=== PATIENT | male | born 1980 | race Caucasian/White ===

== ENCOUNTER 2017-08-07 00:22 | Inpatient (IN) | payer OTHER ==
[~2017-08-07] VITALS: Ht 182.9 cm; Wt 95.3 kg
[2017-08-07 01:00] VITALS: BP 139/82
[2017-08-07] MEDS ORDERED: DIAZEPAM 10 MG TABLET PO PRN ×2 (01:00)
[2017-08-07] MEDS ORDERED: IBUPROFEN 400 MG TABLET PO PRN (01:00)
[2017-08-07] MEDS ORDERED: DIAZEPAM 5 MG TABLET PO PRN (01:00)
[2017-08-07] MEDS ORDERED: ONDANSETRON ODT 4 MG TAB.RAPDIS SL PRN (01:00)
[2017-08-07] MEDS ORDERED: ONDANSETRON 4 MG/2 ML VIAL IM PRN (01:00)
[2017-08-07] MEDS ORDERED: LORAZEPAM 2 MG/1 ML VIAL IM PRN (01:00)
[2017-08-07] MEDS ORDERED: MAG HYDROX/AL HYDROX/SIMETH 30 ML LIQUID UDC PO PRN (01:00)
[2017-08-07] MEDS ORDERED: ACETAMINOPHEN 325 MG TABLET PO PRN (01:00)
[2017-08-07] MEDS ORDERED: MIRALAX 17 GM POWD.PACK PO PRN (01:00)
[2017-08-07] MEDS ORDERED: MAGNESIUM HYDROXIDE 30 ML LIQUID UDC PO PRN (01:00)
[2017-08-07] MEDS ORDERED: LOPERAMIDE HCL 2 MG CAPSULE PO PRN ×2 (01:00)
[2017-08-07] MEDS ORDERED: DICYCLOMINE HCL 20 MG TABLET PO PRN (01:00)
--- NOTE | 2017-08-07 01:00 | NUR ---
Pre-admission assessment Assessment done at intake office. Patient is alert & oriented x4. Pt is ambulatory with a steady gait. Speech is clear and audible. Pt does not look intoxicated. Pt appears slightly anxious and is cooperative during interviews. Vitals noted B/P 139/82, MA 88, RR 16, Temp 97.9, O2Sat 96%. Pt appears stable. Vitals WNL. No seizure history noted. Pt denies any food and drug allergies. Explained to patient unit policy & regarding destruction of any controlled substances or prescriptions brought to facility and handling of all medications. Pt verbalized understanding.
--- NOTE | 2017-08-07 02:00 | NUR ---
ADMISSION NOTE: Patient is a 37 y.o male admitted at [facility] Unit at approximately 0119 am of 08/07/17 for medically supervised withdrawal from Benzodiazepines. Body search done and skin check performed in Room 303, no contraband found. Skin noted to be intact. Pt is 60" tall and weighs 210 lbs in a standing scale. Pt is cooperative during assessment. Patient is oriented to floor unit and room. Patient follows a regular diet at home with no known food and drug allergies. Pt wishes to be full Code. Patient is alert & oriented x4, ambulatory with a steady gait. Speech is clear and audible. Patient appears mildly anxious and agitated but cooperative during interview. Patient does not look intoxicated. No shortness of breath noted. Respiration even & unlabored. Abdomen soft & non-distended. Bowel sounds active in all four quadrants. No nausea/vomiting noted. Patient denies any pain & discomfort. No hand tremors noted. CIWA 5 noted. Patient noted with past medical history of Anxiety, Neuropathic pain & Hypertension. Patient denies any seizure history. No suicide attempts in the past. Pt currently denies SI/HI. Pt was able to provide urine sample for drug screen upon admission and is voiding clear yellow urine with no problems. Substance use: 1. Xanax- Pt has been taking prescription Xanax for anxiety for 10 years. Patient takes 4mg of Xanax daily in the past 4 years. Pt last took 1mg of Xanax in the morning of 08/06/17. 2. Methamphetamines- Pt has been using Meth intravenously for 2 years. Pt uses 1-2gm daily for the past 2 years. Pt last took 1gm of Meth on 08/06/17. 3. [place]- Pt is taking prescribed [place] 10/325mg for his neuropathy. Pt denies dependence on Opiates and has been taking it occasionally. Pt reported that his last dose was on 08/03/17. Treatment History: 1. [facility] in [place] for 30 days (November 2012) 2. [facility] in [place] for 2 months (2013) Home Medication: 1.Pt reports taking anti hypertensive medication but does not remember the name or how much he takes. Pt did not bring medication with him. 2.Ibuprofen 200mg softgels for pain. Patient denies being hospitalized in the last 30 days. Patient reports his longest period of sobriety was for 8 months from November 2012 to July 2013. Patient reports symptoms when he does not use as anxiety, agitation, headaches & stuttering. Patient uses a vape and smokes cigarettes occasionally. Patient refused flu & pneumonia vaccines, educated patient risk & benefits but still refused. Patient has a PCP named Dr. Rios. Urine drug screen came back positive for Opiates, Benzos and Ampethamines. Fall & Seizure precautions are in place. All needs attended & met. Safety precautions are in place. Bed locked in lowest position. Both side rails padded & up. Call light within pt's reach. Informed Dr. Ramírez of pts admission. Will continue to monitor patient.
[2017-08-07 02:32] LABS: ETHANOL < 3 MG/DL (0-0)
[2017-08-07 02:35] LABS: ALANINE AMINOTRANSFERASE 28 U/L (16-63); ALKALINE PHOSPHATASE 63 U/L (50-136); AMYLASE 49 U/L (25-115); ASPARTATE AMINOTRANSFERASE 13 U/L (15-37); BILIRUBIN,TOTAL 0.2 mg/dL (0.2-1.0); CARBON DIOXIDE 29 mmol/L (21-32); CHLORIDE 105 mmol/L (98-107); CREATININE 1.1 mg/dL (0.6-1.3); GLUCOSE 86 mg/dL (74-106); LIPASE 154 U/L (73-393); MAGNESIUM 2.1 mg/dL (1.8-2.4); POTASSIUM 3.7 mmol/L (3.5-5.1); TOTAL PROTEIN, SERUM 7.6 g/dL (6.4-8.2); UREA NITROGEN, BLOOD 18 mg/dL (7-18)
[2017-08-07 02:36] LABS: BASOPHILS % (AUTO) 0.5 % (0.0-2.0); EOSINOPHILS # (AUTO) 0.3 K/uL (0.0-0.7); EOSINOPHILS % (AUTO) 5.6 % (0.0-7.0); HEMATOCRIT 44.4 % (36.7-47.1); LYMPHOCYTES # (AUTO) 2.1 K/uL (20.0-40.0); LYMPHOCYTES % (AUTO) 34.4 % (20.5-51.5); MEAN CORPUSCULAR HEMOGLOBIN 28.2 uug (23.8-33.4); MEAN CORPUSCULAR HGB CONC 34 g/dL (32.5-36.3); MEAN CORPUSCULAR VOLUME 83.7 fL (73.0-96.2); MONOCYTES # (AUTO) 0.7 K/uL (2.0-10.0); MONOCYTES % (AUTO) 11.4 % (0.0-11.0); NEUTROPHILS # (AUTO) 2.9 K/uL (1.8-8.9); NEUTROPHILS % (AUTO) 48.1 % (38.5-71.5); PLATELET COUNT (AUTO) 269 K/uL (152-348)
[2017-08-07 02:41] LABS: *AMPHETAMINE, URINE POSITIVE (NEGATIVE); *BARBITURATE, URINE NEGATIVE (NEGATIVE); *CANNABINOID, URINE NEGATIVE (NEGATIVE); *COCCAINE, URINE NEGATIVE (NEGATIVE); *OPIATE, URINE POSITIVE (NEGATIVE); *PHENCYCLIDINE SCREEN,URINE NEGATIVE (NEGATIVE)
[2017-08-07 02:44] LABS: THYROID STIMULATING HORMONE 3.707 mIU/mL (0.358-3.740)
--- NOTE | 2017-08-07 02:54 | NUR ---
PRN Valium Patient appears mildly anxious and agitated with a CIWA 5 noted. Vitals WNL. PRN Valium 5mg administered as ordered. Will monitor for effectiveness of medication.
[2017-08-07] MEDS ORDERED: DIAZEPAM 5 MG TABLET ONE (03:07)
[2017-08-07] MEDS ORDERED: IBUP-1953 PO (03:25)
--- NOTE | 2017-08-07 03:54 | NUR ---
PRn Reassessment Patient appears less anxious and less agitated. Pt verbalized that medication helped him relieved his anxiety. Patient in bed and comfortable. Will continue to monitor patient.
--- NOTE | 2017-08-07 07:10 | NUR ---
Start of Shift Note: Patient is a 37 y.o male admitted today 08/07/17 at 0119am for Benzo dependence. Patient has PMHx of Anxiety, hypertension and Neuropathy. No seizure history noted. Patient is on a regular diet with no known food and drug allergies. Full Code status. Skin noted to be intact. Patient remained stable and vitals WNL. Patient has no taper yet. CIWA 4 noted. Patient received PRN Valium for anxiety and agitation and was effective. Closely monitored symptoms of withdrawal. Vitals monitored and noted within normal limits. Patient shows no s/s of distress. Patient slept for a total of 2hour. Fluid intake 500 ml. Encourage pt to increase fluid intake. Voided 2x with no bowel movement. All needs attended & met. Safety measures in place. Will continue to monitor patient. Addendum: 08/07/17 at 0712 by ALISON HITCHCOCK RN ERROR: Duplicate
[2017-08-07 08:00] VITALS: BP 122/68
--- NOTE | 2017-08-07 08:00 | NUR ---
START OF SHIFT NOTE Received report from night nurse, 37 year old male admitted for Benzo dependence. Patient has PMH of Anxiety, hypertension and Neuropathy. Per endorsement pt received PRN Valium effective per night nurse, last CIWA score was 4, slept for 2 hours. Patient received awake, alert and oriented x4. Patient was educated regarding plan of care for the day and medication regimen. Safety measures in place. Call light with in reach. Will continue to monitor.
[2017-08-07] MEDS ORDERED: MAGNESIUM CHLORIDE 64 MG TABLET.SA PO SCH (09:00)
[2017-08-07] MEDS ORDERED: MULTIVITAMINS,THERAPEUTIC TABLET PO SCH (09:00)
[2017-08-07] MEDS ORDERED: TUBERCULIN,PURIF.PROT.DERIV. 5 TU/0.1 ML TEST ID ONE (09:00)
[2017-08-07] MEDS ORDERED: FOLIC ACID 1 MG TABLET PO SCH (09:00)
[2017-08-07] MEDS: DIAZEPAM 10 MG TABLET PO SCH ×4 (09:03→21:00)
[2017-08-07] MEDS ORDERED: BACLOFEN 20 MG TABLET PO PRN (11:30)
[2017-08-07 12:00] VITALS: BP 125/72
[2017-08-07] MEDS ORDERED: GABAPENTIN 300 MG CAPSULE PO SCH (13:00)
[2017-08-07 16:00] VITALS: BP 135/77
--- NOTE | 2017-08-07 19:06 | NUR ---
END OF SHIFT NOTE Patient started on Ativan taper tolerated well. During shift patient did not receive any PRN medication. Vital signs WNL. Patient did not attend any group or activity, encourage pt to attend groups to learn oping skills with good verbal understanding. Encourage Po fluids as tolerated. Pt medication compliant and tolerated well. Last CIWA score was 6. All safety measures in place, call light within reach. Patient endorsed to night nurse in stable condition.
--- NOTE | 2017-08-07 19:45 | NUR ---
START OF SHIFT Received report from day shift nurse. Pt is lying in bed resting and is easily arousable. He is a 37 yo male [facility]ZD dependence. He is A&O and ambulatory. NKA, full code status, and on a regular diet. He has a PMH of HTN, neuropathy, and anxiety. On admission he reported using xanax 4mg per day, norco 10/325mg x1, and meth 1-2 grams per day. 5 day Valium taper started today. He reports anxiety, sweating and fatigue. Fall and seizure precautions in place. Bed is down with call light in reach.
[2017-08-07 20:00] VITALS: BP 131/84
[2017-08-07] MEDS: GABAPENTIN 300 MG CAPSULE PO SCH (21:00)
[2017-08-08] VITALS (7 sets, daily range): BP systolic 111–155; BP diastolic 66–102
[2017-08-08] MEDS: CLONIDINE HCL 0.1 MG TABLET PO PRN ×2 (00:51→08:35)
--- NOTE | 2017-08-08 00:52 | NUR ---
PRN Clonidine Pt's B/P is 152/96 and HR 87 while lying in bed resting. He is diaphoretic. PRN Clonidine administered.
--- NOTE | 2017-08-08 00:57 | NUR ---
MG Tee Pt reports acid indigestion. He states "I haven't eaten this much in a while". MG Tee administered.
--- NOTE | 2017-08-08 02:00 | NUR ---
PRN Clonidine and Mylanta reassessment PRN Clonidine effective. Pt is no longer diaphoretic. B/P 111/66 and HR 80. He is lying in bed resting with eyes closed. PRN Mylanta effective. Pt verbalized that acid indigestion is relieved.
--- NOTE | 2017-08-08 07:14 | NUR ---
END OF SHIFT Report provided to day shift nurse. Pt is lying in bed resting. He is a 37 yo male admitted to [facility] on 08/07 for BZD dependence. He is A&O and ambulatory. NKA, full code status, and on a regular diet. He has a PMH of HTN, neuropathy, and anxiety. On admission he reported using xanax 4mg per day, norco 10/325mg x1, and meth 1-2 grams per day. 5 day Valium taper started yesterday. PRN Clonidine administered. Last CIWA 5. He drank 1686mL and slept for 9 hours. Fall and seizure precautions in place. Bed is down with call light in reach. Addendum: 08/08/17 at 0729 by FAUSTO SOUZA RN PRN Mylanta administered.
--- NOTE | 2017-08-08 07:53 | NUR ---
START OF SHIFT NOTE Received report from night nurse, 37 year old male admitted for Benzo dependence. Patient has PMH of Anxiety, hypertension and Neuropathy. Per endorsement pt received PRN Benadryl/Mylanta effective per night nurse, last CIWA score was 5, slept for 9 hours. Patient received awake, alert and oriented x4. Patient was educated regarding plan of care for the day and medication regimen. Safety measures in place. Call light with in reach. Will continue to monitor.
[2017-08-08] MEDS: DIAZEPAM 10 MG TABLET PO SCH ×3 (08:34→21:10)
[2017-08-08] MEDS: GABAPENTIN 300 MG CAPSULE PO SCH ×3 (08:34→21:10)
--- NOTE | 2017-08-08 08:40 | NUR ---
PRN MOTRIN/CLONIDINE/BACLOFEN Patient c/o of right hand pain 6/10, and myalgia, and noted with high blood pressure 150/89. PRN Clonidine0.1mg Po, Baclofen 20mg Po, Motrin 400mg Po given as ordered. Will cont to monitor and reassess the pt.
[2017-08-08] MEDS ORDERED: DIAZEPAM 10 MG TABLET PO PRN (09:00)
--- NOTE | 2017-08-08 09:40 | NUR ---
MOTRIN/BACLOFEN/CLONIDINE REASSESSMENT Per patient body aches decreased to 1/10 and muscle cramps subside and B/P noted 136/69, Clonidine was effective.
--- NOTE | 2017-08-08 10:41 | NUR ---
Therapist prompted client about group times. Client stated he will start attending groups tomorrow when he feels better.
[2017-08-08] MEDS ORDERED: METOPROLOL SUCCINATE XL 50 MG TAB.SR.24H PO ONE (15:00)
[2017-08-08] MEDS: hydrALAZINE HCL 50 MG TABLET PO PRN (17:24)
--- NOTE | 2017-08-08 17:42 | NUR ---
PRN HYDRALAZINE Patient blood pressure noted 155/102, HR-91, PRN Hydralazine 50mg PO given as ordered. Will cont to monitor and reassess.
--- NOTE | 2017-08-08 18:42 | NUR ---
HYDRALAZINE REASSESSMENT Blood pressure noted 136/74, Hydralazine was effective.
--- NOTE | 2017-08-08 18:57 | NUR ---
END OF SHIFT 37 year old male continues on ordered taper and is tolerating well. Pt continues to have high b/p. Dr. Ramírez ordered Metoprolol XL 50mg daily. PRN Hydralazine was administered and effective. Pt encouraged to attend groups, at verbalize feelings. Ambulates with a steady gait. S/S of withdrawals are being monitored by ordered medications. All needs met. Safety measures are in place, night nurse to continue to monitor.
--- NOTE | 2017-08-08 19:40 | NUR ---
START OF SHIFT Received report from day shift nurse. Pt is lying in bed resting. He is a 37 yo male admitted to [facility] on 08/07 for BZD dependence. He is A&O and ambulatory. NKA, full code status, and on a regular diet. He has a PMH of HTN, neuropathy, and anxiety. On admission he reported using xanax 4mg per day, norco 10/325mg x1, and meth 1-2 grams per day. 5 day Valium taper started 08/07. He is experiencing diaphoresis and facial flushing. He denies pain. Fall and seizure precautions in place. Bed is down with call light in reach.
[2017-08-09] VITALS (7 sets, daily range): BP systolic 129–143; BP diastolic 70–100
[2017-08-09] MEDS: IBUPROFEN 600 MG TABLET PO PRN ×2 (00:19→08:09)
[2017-08-09] MEDS: hydrALAZINE HCL 50 MG TABLET PO PRN (00:19)
--- NOTE | 2017-08-09 00:20 | NUR ---
PRN Hydralazine and Motrin Pt's B/P 135/100 and HR 98. He reports 7/10 bilateral hand pain. Offered warm water and salt bath for soaking hands. Pt declined at this time. PRN Hydralazine and Motrin administered.
--- NOTE | 2017-08-09 01:20 | NUR ---
PRN Hydralazine and Motrin reassessment PRN Hydralazine effective. Pt's B/P 129/79 and HR 90. PRN Motrin effective. Pt reports pain is reduced to 3/10.
[2017-08-09] MEDS: diphenhydrAMINE 50 MG CAPSULE PO PRN (01:29)
--- NOTE | 2017-08-09 01:30 | NUR ---
PRN Benadryl Pt reports inability to sleep. PRN Benadryl administered.
[2017-08-09 02:10] LABS: HEPATITIS B SURFACE AG Negative (Negative)
--- NOTE | 2017-08-09 02:30 | NUR ---
PRN Benadryl reassessment PRN Benadryl effective. Pt is lying in bed resting with eyes closed. Respirations even and unlabored. Safety measures in place.
--- NOTE | 2017-08-09 04:00 | NUR ---
0400 CIWA deferred CIWA ordered Q4HWA. Pt is lying in bed resting with eyes closed. Vital signs obtained. Safety measures in place.
--- NOTE | 2017-08-09 07:19 | NUR ---
END OF SHIFT Report provided to day shift nurse. Pt is lying in bed resting. He is a 37 yo male admitted to [facility] on 08/07 for BZD dependence. He is A&O and ambulatory. NKA, full code status, and on a regular diet. He has a PMH of HTN, neuropathy, and anxiety. On admission he reported using xanax 4mg per day, norco 10/325mg x1, and meth 1-2 grams per day. 5 day Valium taper started 08/07. PRN Hydralazine, Motrin, and Benadryl administered. Last CIWA was 5. He drank 592mL and slept for 8 hours. Fall and seizure precautions in place. Bed is down with call light in reach.
--- NOTE | 2017-08-09 07:20 | NUR ---
Start of Shift Notes: Received endorsement from night nurse. Patient is in his room. Awake, alert and verbally responsive. Oriented x 4. Respirations even and unlabored. No SOB noted. Skin warm and dry to touch. Abdomen soft and non-distended with BS (+) in all 4 quadrants. No complains of N/V/D or constipation noted. Bladder non-distended. No complains of dysuria noted. Patient is a 37 year old male admitted for BZO who was placed on a 5-day Valium taper as ordered. No adverse reactions noted. Has past medical hx of HTN, neuropathy and depression. NKA. FULL CODE. Regular diet. On fall and seizure precautions. Educated patient on his current plan of care for the day and his medication regimen. All needs met and attended. Will continue to monitor and encourage group participation to learn new skills to prevent relapse.
[2017-08-09] MEDS: GABAPENTIN 300 MG CAPSULE PO SCH ×3 (08:09→21:07)
[2017-08-09] MEDS: METOPROLOL SUCCINATE XL 50 MG TAB.SR.24H PO SCH (08:09)
[2017-08-09] MEDS: DIAZEPAM 5 MG TABLET PO SCH ×2 (08:09→12:40)
--- NOTE | 2017-08-09 08:09 | NUR ---
Motrin 600 mg PO given: Patient complained of 6/10 headache and pain to his hands related to neuropathy. Non-pharmacological interventions provided but ineffective. Heat packs requested and provided. Medicated patient with Motrin 600 mg PO as ordered. Will monitor for effectiveness.
[2017-08-09] MEDS ORDERED: DIAZEPAM 10 MG TABLET PO PRN (09:00)
--- NOTE | 2017-08-09 09:09 | NUR ---
Re-assessment: Motrin [address] 09/16. PRN Motrin was effective in reducing pain/headache.
[2017-08-09] MEDS ORDERED: DIAZEPAM 5 MG TABLET PO SCH (17:00)
--- NOTE | 2017-08-09 19:00 | NUR ---
End of Shift Notes: Patient continues to b on 5-day Valium taper as ordered. No adverse reactions noted. VS monitored closely. No significant abnormalities noted. BP closely monitored due to hx of HTN. Withdrawal symptoms were closely monitored. Initial CIWA 5, patient presented with tactile disturbance, tremors and anxiety. Last CIWA 3. Per patient, Valium has been effective in reducing his withdrawal symptoms. Compliant with care and treatment. Able to participate in group and activities despite his withdrawal symptoms. All needs met and attended. Will continue to monitor closely.
--- NOTE | 2017-08-09 19:15 | NUR ---
START OF SHIFT Received 37 year old male admitted on 08/07/16 for Xanax and methamphetamine dependency. Pt is full code with NKA. He reports a PMHx of anxiety, HTN, and neuropathy. Pt reports using neuropathy 4 mg daily for 4 years. Last dose was 1 mg on 08/06/17 and Meth IV 1-2 gram daily for 2 years. Last dose was 1 gram on 08/06/17. And [place] 10/325 mg x1 on 08/03/17. He denies any seizure history. He is currently receiving 5 day modified Valium taper and tolerating well. Per endorsement, pt received PRN Motrin at 0800. Pt is alert and oriented x4, breathing is even and unlabored. Safety measures in place. Will continue to monitor. Addendum: 08/10/17 at 0618 by CHRISTINA KNUTSON RN ERROR IN CHARTING. Pt reports using Xanax 4 mg daily for 4 years.
[2017-08-09] MEDS ORDERED: DIAZEPAM 10 MG TABLET PO SCH (21:00)
[2017-08-10] VITALS: BP 138/81
[2017-08-10] MEDS: diphenhydrAMINE 50 MG CAPSULE PO PRN ×2 (02:00→20:43)
--- NOTE | 2017-08-10 02:02 | NUR ---
PRN BENADRYL Pt complains of inability to sleep. PRN Benadryl administered as ordered. Will monitor effectiveness.
--- NOTE | 2017-08-10 03:02 | NUR ---
PRN BENADRYL REASSESSMENT PRN medication effective. Pt is lying in bed with eyes closed noted to be asleep. Breathing is even and unlabored. Safety measures in place. Will monitor.
[2017-08-10 04:00] VITALS: BP 130/87
--- NOTE | 2017-08-10 07:09 | NUR ---
END OF SHIFT Pt is a 37 year old male admitted on 08/07/16 for Xanax and methamphetamine dependency. Pt is full code with NKA. He reports a PMHx of anxiety, HTN, and neuropathy. He continues on a 5 day modified Valium taper and tolerating well. At 0202 pt received PRN Benadryl. He slept a total of 9 hrs, Intake: 1288mL, Void: x3, BM:0, CIWA:4. Pt remains alert and oriented x4, breathing is even and unlabored. Safety measures in place. Endorsed to AM shift.
[2017-08-10 08:00] VITALS: BP 178/101
[2017-08-10] MEDS: GABAPENTIN 300 MG CAPSULE PO SCH ×2 (09:29→14:29)
[2017-08-10] MEDS: DIAZEPAM 5 MG TABLET PO SCH ×3 (09:30→20:43)
[2017-08-10] MEDS: hydrALAZINE HCL 50 MG TABLET PO PRN (09:30)
[2017-08-10] MEDS: METOPROLOL SUCCINATE XL 50 MG TAB.SR.24H PO SCH (09:31)
[2017-08-10 12:00] VITALS: BP 163/90
[2017-08-10] MEDS ORDERED: AMLODIPINE 5 MG TABLET PO ONE (15:00)
[2017-08-10 16:00] VITALS: BP 117/90
--- NOTE | 2017-08-10 18:23 | NUR ---
PATIENT HAS BEEN A LITTLE ANXIOUS LATE IN SHIFT REC D PRN THAT HELPED WITH ANXIETY , VISIBLE ON UNIT AND OUTSIDE TO SMOKE CONTINUE TO MONITOR FOR SAFETY
--- NOTE | 2017-08-10 19:15 | NUR ---
START OF SHIFT Received 37 year old male admitted on 08/07/16 for Xanax and methamphetamine dependency. Pt is full code with NKA. He reports a PMHx of anxiety, HTN, and neuropathy. Pt reports using Xanax 4 mg daily for 4 years. Last dose was 1 mg on 08/06/17 and Meth IV 1-2 gram daily for 2 years. Last dose was 1 gram on 08/06/17. And [place] 10/325 mg x1 on 08/03/17. He denies any seizure history. He is currently receiving a 5 day modified Valium taper and tolerating well. Per endorsement, pt received PRN Hydralazine. Pt is alert and oriented x4, breathing is even and unlabored. Safety measures in place. Will continue to monitor.
[2017-08-10 20:00] VITALS: BP 136/88
--- NOTE | 2017-08-10 20:43 | NUR ---
PRN BENADRYL Pt complains of inability to sleep. PRN Benadryl administered as ordered. Will continue to monitor effectiveness.
[2017-08-10] MEDS ORDERED: GABAPENTIN 300 MG CAPSULE PO SCH (21:00)
--- NOTE | 2017-08-10 21:43 | NUR ---
PRN BENADRYL REASSESSMENT PRN medication effective. Pt lying in bed with eyes closed noted to be asleep. Respirations 16, breathing even and unlabored. Safety measures in place. Will monitor.
[2017-08-11] VITALS: BP 119/80
[2017-08-11 04:00] VITALS: BP 137/86
[2017-08-11] MEDS: IBUPROFEN 600 MG TABLET PO PRN (06:46)
--- NOTE | 2017-08-11 06:46 | NUR ---
PRN MOTRIN Pt complains of headache 03/16. PRN Motrin administered as ordered. Will endorse to AM shift to reassess effectiveness.
--- NOTE | 2017-08-11 07:19 | NUR ---
END OF SHIFT Pt is a 37 year old male admitted on 08/07/16 for Xanax and methamphetamine dependency. Pt is full code with NKA. He reports a PMHx of anxiety, HTN, and neuropathy. He continues on a 5 day modified Valium taper and tolerating well. At 204 he received PRN Benadryl, at 0646 he received PRN Motrin. He slept a total of 9 hrs, Intake: 1151mL, Void: x2, BM:x1, CIWA:3. Pt remains alert and oriented x4, breathing is even and unlabored. Safety measures in place. Endorsed to AM shift.
--- NOTE | 2017-08-11 07:40 | NUR ---
Start of Shift Notes/Motrin re-assessment: Received endorsement from night nurse. Patient is in his room. Awake, alert and verbally responsive. Oriented x 4. Respirations even and unlabored. No SOB noted. Skin warm and dry to touch. Abdomen soft and non-distended with BS (+) in all 4 quadrants. No complains of N/V/D or constipation noted. Bladder non-distended. No complains of dysuria noted. Patient is a 37 year old male admitted for BZO who was placed on a 5-day Valium taper as ordered. No adverse reactions noted. Has past medical hx of HTN, neuropathy and depression. NKA. FULL CODE. Regular diet. On fall and seizure precautions. Educated patient on his current plan of care for the day and his medication regimen. All needs met and attended. Patient states that PRN Motrin was mildy effective in reducing headache. Will notify MD. and continue to monitor and encourage group participation to learn new skills to prevent relapse.
[2017-08-11 08:00] VITALS: BP 125/72
[2017-08-11] MEDS: GABAPENTIN 300 MG CAPSULE PO SCH ×3 (08:48→20:56)
[2017-08-11] MEDS: METOPROLOL SUCCINATE XL 50 MG TAB.SR.24H PO SCH (08:48)
[2017-08-11] MEDS: AMLODIPINE 5 MG TABLET PO SCH (08:48)
[2017-08-11] MEDS ORDERED: DIAZEPAM 5 MG TABLET PO SCH (09:00)
[2017-08-11 12:00] VITALS: BP 134/79
[2017-08-11 16:00] VITALS: BP 130/71
[2017-08-11] MEDS: FLUTICASONE PROP NASAL SPRAY 16 GM BOTTLE NS SCH (17:30)
[2017-08-11] MEDS: LORATADINE 10 MG TABLET PO SCH (17:43)
--- NOTE | 2017-08-11 17:44 | NUR ---
Flonase at 1730 not administered: Patient refused Flonase at this time, stating "I don't need it now." Educated patient on the risk and benefits but patient still refused. Patient accepted Claritin. Will continue to monitor and encourage compliance.
[2017-08-11] MEDS: HYDROXYZINE PAMOATE 25 MG CAPSULE PO PRN (18:31)
--- NOTE | 2017-08-11 18:31 | NUR ---
Vistaril 25 mg PO given: Patient noted with complain of anxiety. VS stable. Non-pharmacological interventions provided but ineffective. Medicated patient with Vistaril 25 mg PO as ordered. Will monitor for effectiveness.
--- NOTE | 2017-08-11 19:07 | NUR ---
End of Shift Notes: Patient continues to b on 5-day Valium taper as ordered. No adverse reactions noted. VS monitored closely. No significant abnormalities noted. BP closely monitored due to hx of HTN. Withdrawal symptoms were closely monitored. Initial CIWA 4, patient presented with tremors and anxiety. Last CIWA 3. PRN Vistaril 25mg PO given at 1831 for anxiety. Results pending. Per patient, Valium has been effective in reducing his withdrawal symptoms. Compliant with care and treatment. Able to participate in group and activities despite his withdrawal symptoms. All needs met and attended. Will continue to monitor closely.
[2017-08-11 20:00] VITALS: BP 121/76
--- NOTE | 2017-08-11 20:00 | NUR ---
Start of Shift Notes Received 37 year old male admitted on 08/07/16 for Xanax and methamphetamine dependency. Px is full code with NKA and on regular diet. Px has PMHx of anxiety, HTN, and neuropathy. He denies any seizure history. He is currently receiving a 5 day modified Valium taper and tolerating well. During the rounds at 1999, px verbalized that Vistaril given was effective to decrease his anxiety. Px requested for Benadryl to help him sleep tonight. Pxs breathing is even and unlabored. Safety measures in place. Bed is on lowest position, side rails up 2x and call light is within reach. We'll continue to monitor.
[2017-08-11] MEDS: diphenhydrAMINE 50 MG CAPSULE PO PRN (20:56)
--- NOTE | 2017-08-11 20:56 | NUR ---
PRN Benadryl Px requested for Benadryl to help him sleep tonight. Benadryl 50 mg/cap, 1 cap given PO as PRN med. We'll continue to monitor.
[2017-08-12] VITALS: BP 124/78
--- NOTE | 2017-08-12 | NUR ---
CIWA deferred CIWA deferred due to the px is asleep, to assess if the px is awake per doctor's order. We'll continue to monitor.
[2017-08-12 04:00] VITALS: BP 129/79
--- NOTE | 2017-08-12 04:00 | NUR ---
CIWA deferred CIWA deferred due to the px is asleep, to assess if the px is awake per doctor's order. We'll continue to monitor.
--- NOTE | 2017-08-12 07:26 | NUR ---
End of Shift Notes 37 year old male admitted on 08/07/16 for Xanax and methamphetamine dependency. Px is full code with NKA and on regular diet. Px has PMHx of anxiety, HTN, and neuropathy. He denies any seizure history. He is currently receiving a 5 day modified Valium taper and tolerating well. During the shift, px requested for Benadryl to help him sleep tonight. Benadryl 50 mg/cap, 1 cap given PO as PRN med. Pxs breathing is even and unlabored. Oral intake of 1,500 ml, voided 4x, no BM. Slept for 8 hours. Safety measures in place. Bed is on lowest position, side rails up 2x and call light is within reach. We'll continue to monitor.
--- NOTE | 2017-08-12 07:30 | NUR ---
Start of Shift Notes: Received endorsement from night nurse. Patient is in his room. Awake, alert and verbally responsive. Oriented x 4. Respirations even and unlabored. No SOB noted. Skin warm and dry to touch. Abdomen soft and non-distended with BS (+) in all 4 quadrants. No complains of N/V/D or constipation noted. Bladder non-distended. No complains of dysuria noted. Patient is a 37 year old male admitted for BZO who was placed on a 5-day Valium taper as ordered. No adverse reactions noted. Has past medical hx of HTN, neuropathy and depression. NKA. FULL CODE. Regular diet. On fall and seizure precautions. Educated patient on his current plan of care for the day and his medication regimen. All needs met and attended. Will notify MD. and continue to monitor and encourage group participation to learn new skills to prevent relapse.
[2017-08-12 08:00] VITALS: BP 138/83
[2017-08-12] MEDS: METOPROLOL SUCCINATE XL 50 MG TAB.SR.24H PO SCH (08:53)
[2017-08-12] MEDS: AMLODIPINE 5 MG TABLET PO SCH (08:54)
[2017-08-12] MEDS: GABAPENTIN 300 MG CAPSULE PO SCH ×3 (08:54→21:00)
[2017-08-12] MEDS: LORATADINE 10 MG TABLET PO SCH (08:54)
[2017-08-12] MEDS: FLUTICASONE PROP NASAL SPRAY 16 GM BOTTLE NS SCH (08:55)
[2017-08-12] MEDS ORDERED: DIAZEPAM 5 MG TABLET PO SCH (09:00)
[2017-08-12 12:00] VITALS: BP 123/84
[2017-08-12 16:00] VITALS: BP 133/86
[2017-08-12] MEDS: HYDROXYZINE PAMOATE 25 MG CAPSULE PO PRN (17:20)
--- NOTE | 2017-08-12 17:20 | NUR ---
Vistaril 25 mg PO given: Patient noted with complain of anxiety. Pulse 90. Non-pharmacological interventions were provided but ineffective. Medicated patient with Vistaril 25 mg PO as ordered. Will monitor for effectiveness.
--- NOTE | 2017-08-12 18:20 | NUR ---
Re-assessment: Vistaril Per patient, PRN Vistaril was effective in reducing patient's anxiety.
--- NOTE | 2017-08-12 19:00 | NUR ---
End of Shift Notes: Patient completed his 5-day Valium taper as ordered. No adverse reactions noted. VS monitored closely. No significant abnormalities noted. BP closely monitored due to hx of HTN. Withdrawal symptoms were closely monitored. Initial CIWA 3, patient presented with tremors and anxiety. Last CIWA 1. Per patient, Valium has been effective in reducing his withdrawal symptoms. PRN Vistaril 25 mg PO given at 1720 with help after 1 hour. Compliant with care and treatment. Able to participate in group and activities despite his withdrawal symptoms. All needs met and attended. Will continue to monitor closely.
[2017-08-12] MEDS ORDERED: IBUP-1955 PO (19:28)
[2017-08-12] MEDS ORDERED: DIPH50CA37 PO (19:28)
[2017-08-12] MEDS ORDERED: METO50TA7 PO (19:28)
[2017-08-12] MEDS ORDERED: GABA-534 PO (19:28)
[2017-08-12] MEDS ORDERED: BACL20TA PO (19:28)
[2017-08-12] MEDS ORDERED: LORA-114 PO (19:28)
[2017-08-12] MEDS ORDERED: HYDR-3895 PO (19:28)
[2017-08-12] MEDS ORDERED: FLUT16SP NS (19:28)
[2017-08-12] MEDS ORDERED: AMLO5TAB2 PO (19:28)
[2017-08-12 20:00] VITALS: BP 128/81
--- NOTE | 2017-08-12 20:00 | NUR ---
Start of Shift Notes Received 37 year old male admitted on 08/07/16 for Xanax and methamphetamine dependency. Px is full code with NKA and on regular diet. Px has PMHx of anxiety, HTN, and neuropathy. He denies any seizure history. Px completed a 5 day modified Valium taper and tolerated well. Px is to be D/C tomorrow 08/13/2017. During the rounds at 2000, Px requested for Benadryl to help him sleep tonight. Pxs breathing is even and unlabored. Safety measures in place. Bed is on lowest position, side rails up 2x and call light is within reach. We'll continue to monitor.
[2017-08-12] MEDS: diphenhydrAMINE 50 MG CAPSULE PO PRN (21:00)
--- NOTE | 2017-08-12 21:00 | NUR ---
PRN Benadryl Px requested for Benadryl to help him sleep tonight. Benadryl 50 mg/cap, 1 cap given PO as PRN med. We'll continue to monitor.
[2017-08-13] VITALS: BP 125/83
--- NOTE | 2017-08-13 | NUR ---
CIWA deferred CIWA deferred due to the px is asleep, to assess if the px is awake per doctor's order. We'll continue to monitor.
[2017-08-13 04:00] VITALS: BP 121/78
--- NOTE | 2017-08-13 07:13 | NUR ---
Start of Shift Notes Received 37 year old male admitted on 08/07/16 for Xanax and methamphetamine dependency. Px is full code with NKA and on regular diet. Px has PMHx of anxiety, HTN, and neuropathy. He denies any seizure history. He is currently receiving a 5 day modified Valium taper and tolerating well. Px is to be D/C today 08/13/2017. During the shift, Px requested for Benadryl to help him sleep tonight. Benadryl 50 mg/cap, 1 cap given PO as PRN med. Pxs breathing is even and unlabored. Oral intake of 1,300 ml, voided 4x, no BM. Slept for 9 hours. Safety measures in place. Bed is on lowest position, side rails up 2x and call light is within reach. We'll continue to monitor.
--- NOTE | 2017-08-13 07:14 | NUR ---
Start of Shift Notes: Received endorsement from night nurse. Patient is in his room. Awake, alert and verbally responsive. Oriented x 4. Respirations even and unlabored. No SOB noted. Skin warm and dry to touch. Abdomen soft and non-distended with BS (+) in all 4 quadrants. No complains of N/V/D or constipation noted. Bladder non-distended. No complains of dysuria noted. Patient is a 37 year old male admitted for BZO who was placed on a 5-day Valium taper as ordered. No adverse reactions noted. Has past medical hx of HTN, neuropathy and depression. NKA. FULL CODE. Regular diet. On fall and seizure precautions. Educated patient on the discharge process. Patient veralized good understanding. All needs met and attended.
[2017-08-13 08:00] VITALS: BP 138/74
[2017-08-13] MEDS: FLUTICASONE PROP NASAL SPRAY 16 GM BOTTLE NS SCH (08:15)
[2017-08-13] MEDS: LORATADINE 10 MG TABLET PO SCH (08:15)
[2017-08-13] MEDS: METOPROLOL SUCCINATE XL 50 MG TAB.SR.24H PO SCH (08:16)
[2017-08-13] MEDS: GABAPENTIN 300 MG CAPSULE PO SCH (08:16)
[2017-08-13 08:20] VITALS: BP 134/87
[2017-08-13] MEDS: AMLODIPINE 5 MG TABLET PO SCH (08:20)
--- NOTE | 2017-08-13 09:33 | NUR ---
Discharged: Patient left the unit at this time. VS stable. CIWA 0. Patient is in good spirits. Educated patient on his discharge instructions, included in the discharge packet were his prescriptions, TB test, and all necessary discharge paperwork. STRUCTURAL TECHNICIAN cabinet checked. Cassette checked. Returned all clothings, medications and valuables were returned to the patient. Patient was picked up by [facility] to be transported to [facility].
== END 2017-08-13 09:33 | disposition other institution (70) | DRG 895 ==
LOC: SRC 00:22
PROVIDERS: ADMIT Internal Medicine; ATTEND Internal Medicine
PROC: HZ2ZZZZ Detoxification Services for Substance Abuse Treatment (ICD-10-PCS; principal; 2017-08-07)
PROC: HZ41ZZZ Group Counseling for Substance Abuse Treatment, Behavioral (ICD-10-PCS; 2017-08-09)
DX: F13.239 Sedative, hypnotic or anxiolytic dependence with withdrawal, unspecified (principal); G62.9 Polyneuropathy, unspecified; I15.9 Secondary hypertension, unspecified; F17.210 Nicotine dependence, cigarettes, uncomplicated; F15.23 Other stimulant dependence with withdrawal; F90.9 Attention-deficit hyperactivity disorder, unspecified type; F41.9 Anxiety disorder, unspecified; F10.11 Alcohol abuse, in remission; F14.11 Cocaine abuse, in remission; Z91.89 Other specified personal risk factors, not elsewhere classified; J30.2 Other seasonal allergic rhinitis; F11.10 Opioid abuse, uncomplicated
CPT/HCPCS: 36415; 70030-TC; 80307; 80324; 80346; 80361; 83690; 83735; 84443; 85025; 86580; 86592; 86705; 86803; 87340; 87806; G0480; J3535; Q0163